=== PATIENT | female | born 2000 | race Caucasian/White ===

== ENCOUNTER 2018-03-03 11:07 | Outpatient (REF) | payer BC, SELFPAY ==
[2018-03-03 20:47] LABS: HGB 13.3 g/dL (12.0-15.5); Mean Corp. HGB Concentration 32.4 g/dL (32.0-36.0); Mean Corpuscular Hemoglobin 27.8 pg (27.0-33.0); Mean Corpuscular Volume 85.6 fL (80-95); Mean Platelet Volume 10.7 fL (8.0-11.0); Platelet Count 370 x1000/uL (130-400); RBC 4.79 m/cumm (4.00-5.20); RBC Distribution Width 13.6 % (11.7-14.6); White Blood Cell Count 8.34 k/cumm (4.4-10.8)
[2018-03-03 20:54] LABS: Iron 45 ug/dL (50-175); Total Iron Binding Capacity 314 ug/dL (250-450); Transferrin Sat 14 % (15-50)
[2018-03-03 21:07] LABS: TSH (W/Ref FT4) 4.36 uIU/mL (0.516-4.13)
[2018-03-03 21:43] LABS: FREE T4 0.87 ng/dL (0.78-1.34)
== END 2018-03-03 11:27 ==
LOC: NCHCN 11:07
PROVIDERS: PCP Pediatrics; Visit Provider Nurse Practitioner Family
DX: R53.83 Other fatigue (principal)
CPT/HCPCS: 85027; 83540; 83550; 84439; 84443